=== PATIENT | male | born 1965 | race African-American/Black ===

== ENCOUNTER → 2016-11-09 | Outpatient (CLI) | payer BC ==
[2016-04-10 10:33] VITALS: BP 116/72
--- NOTE | 2016-11-09 15:01 | MRI ---
HISTORY: Cervicalgia, disc degeneration. Neck pain with numbness and tingling in the upper extremit ies. Study: Noncontrast MRI of the cervical spine Comparison: No priors Technique: Multiplanar multisequence MRI of the cervical spine was obtained utilizing standard depar tmental protocol. Findings: There is reversal of the normal cervical lordosis which likely indicates muscle spasm. No abnormal s ignal characteristics of the bone marrow can be identified. No evidence for fracture or significant bone or edema can be seen. The surrounding soft tissues are unremarkable. The central canal appea rs widely patent and normal signal characteristics of the spinal cord are noted. C2 -- C3: Unremarkable C3 -- C4: Unremarkable C4 -- C5: Left paracentral disc protrusion. There is minimal cord effacement and no evidence of cent ral spinal stenosis, lateral foraminal stenosis or nerve root impingement is seen. C5 -- C6: Bilateral subarticular disk protrusions, more pronounced on the left with foraminal stenos is and likely exiting nerve root impingement. No central spinal stenosis is seen. C6 -- C7: Broad disc ridging with mild cord effacement and bilateral foraminal stenosis. No signific ant central spinal stenosis is seen. C7 -- T1: Bilateral subarticular disk osteophyte complexes with bilateral foraminal stenosis and lik ashok exiting nerve root impingement. No evidence of central spinal stenosis is seen. IMPRESSION: Multilevel abnormalities as detailed above. Reported By:
== END ==
LOC: RAD 13:02
PROVIDERS: ATTEND Nurse Practitioner Family
DX: R20.2 Paresthesia of skin (principal); M54.2 Cervicalgia
CPT/HCPCS: 72141

== ENCOUNTER → 2017-01-12 | Outpatient (CLI) | payer BC ==
[2016-04-10 10:33] VITALS: BP 116/72
--- NOTE | 2017-01-15 11:28 | MRI ---
MRI SPINE LUMBAR WITHOUT CONTRAST CLINICAL HISTORY: 51-year-old male with chronic low back pain and left radicular symptoms. COMPARISON: None. Technique: Multiplanar, multisequence MRI images of the lumbar spine were obtained without the admin istration of contrast. FINDINGS: The most caudad, fully-formed intervertebral disc will be labeled L5-S1 for the purpose of this dictation. Straightening of the lumbar lordosis with mild levo scoliotic curvature as imaged. Al ignment is maintained. There is preservation of vertebral body and disc space height. Mild type 2 end plate changes L1-L5 with mild loss of disc signal L1-L5. Cord signal is normal. The conus medullaris is normal in signal characteristics and morphology and terminates at the L1-2 level. T12-L1: No central canal or neural foraminal stenosis. L1-L2: Symmetric disc bulge without central canal or neural foraminal stenosis. L2-L3: Symmetric disc bulge with moderate facet hypertrophy and thickened ligamentum flavum without c entral canal or neural foraminal stenosis. L3-L4: Large symmetric disc bulge with thickened ligamentum flavum and facet hypertrophy without cent ral canal or neural foraminal stenosis. Left far-lateral annular fissure with disc bulge engaging the ventral aspect of the transiting L4 nerve roots and exiting left L3 nerve root. L4-L5: Large symmetric disc bulge with facet hypertrophy and thickened ligamentum flavum. Central and far right lateral annular fissures with disc bulge contacting the ventral aspect of the transiting L 5 nerve roots. No central canal or neural foraminal stenosis. L5-S1: Symmetric disc bulge without central canal or neural foraminal stenosis. Paraspinous soft tissues are unremarkable. IMPRESSION: 1. Multilevel disc degeneration and spondyloarthropathy most severe at L3-L4. 2. See level by level descriptions above. Reported By:
== END | disposition home or self-care (01) ==
LOC: RAD 13:52
PROVIDERS: ATTEND Orthopaedic Surgery Orthopaedic Surgery of the Spine
DX: M54.16 Radiculopathy, lumbar region (principal); M47.896 Other spondylosis, lumbar region; M51.36 Other intervertebral disc degeneration, lumbar region
CPT/HCPCS: 72148

== ENCOUNTER 2017-04-10 15:12 | Emergency (ER) | payer BC ==
[2017-04-10 15:18] VITALS: BP 125/84; BMI 27.7
[2017-04-10] MEDS ORDERED: NS 1000 ML 1,000 ML IV ONE (15:21)
[2017-04-10] MEDS ORDERED: NS 1000 ML 1,000 ML ONE (15:23)
[2017-04-10] MEDS ORDERED: ZOFRAN INJ 4 MG VIAL IVP ONE (15:38)
[2017-04-10] MEDS ORDERED: TORADOL 30 MG VIAL IVP ONE (15:38)
[2017-04-10] MEDS ORDERED: TORADOL 30 MG VIAL ONE (15:39)
[2017-04-10] MEDS ORDERED: ZOFRAN INJ 4 MG VIAL ONE (15:39)
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
[2017-04-10 16:04] LABS: BASOPHILS # (AUTO) 0.1 X10^3/uL (0.0-0.1); BASOPHILS % (AUTO) 0.9 % (0.2-1.0); EOSINOPHILS # (AUTO) 0.1 x10^3/uL (0.0-0.2); EOSINOPHILS % (AUTO) 1.9 % (0.9-2.9); HEMOGLOBIN 13.8 g/dL (13.5-18.0); LYMPHOCYTES # (AUTO) 2.6 X10^3/uL (1.3-2.9); LYMPHOCYTES % (AUTO) 41.1 % (21.0-51.0); MEAN CORPUSCULAR HEMOGLOBIN 30.3 pg (27.0-34.0); MEAN CORPUSCULAR HGB CONC 34.6 g/dL (33.0-35.0); MEAN CORPUSCULAR VOLUME 87.6 fL (80.0-100.0); MEAN PLATELET VOLUME 7.9 fL (7.4-11.0); MONOCYTES % (AUTO) 15.5 % (0.0-13.0); NEUTROPHILS # (AUTO) 2.5 x10^3/uL (2.2-4.8); NEUTROPHILS % (AUTO) 40.6 % (42.0-75.0); PLATELET COUNT 273 X10^3/uL (150.0-450.0); RED BLOOD COUNT 4.57 X10^6/uL (4.7-6.0); WHITE BLOOD COUNT 6.3 X10^3/uL (3.6-10.0)
--- NOTE | 2017-04-10 16:14 | RAD ---
Examination: Portable AP chest History: Cough and fever Comparison 04/09/2016 Findings: Continued normal heart size with clear lungs and pleural spaces. Impression: No change; no acute disease. Reported By:
[2017-04-10 16:15] LABS: ALANINE AMINOTRANSFERASE 67 Units/L (12-78); ALBUMIN 3.3 g/dL (3.4-5.0); ALKALINE PHOSPHATASE 68 Units/L (46-116); ASPARTATE AMINO TRANSFERASE 40 Units/L (15-37); BLOOD UREA NITROGEN 10 mg/dL (7-18); CALCIUM 8.4 mg/dL (8.5-10.1); CARBON DIOXIDE 29.2 mmol/L (21-32); CHLORIDE 104 mmol/L (98-107); CREATININE 1.19 mg/dL (0.70-1.30); SODIUM 141 mmol/L (136-145); TOTAL PROTEIN 7.7 g/dL (6.4-8.2); eGFR BLACK RACES > 60 (>60); eGFR NON BLACK RACES > 60 (>60)
== END 2017-04-10 16:48 | disposition home or self-care (01) ==
LOC: ER 15:21
DX: J06.9 Acute upper respiratory infection, unspecified (principal)
CPT/HCPCS: 36415; 71045; 80053; 85025; 86140; 96365; 96374; 96375; 99283; A4222; J1885; J2405

== ENCOUNTER 2020-11-11 11:06 | Inpatient (IN) ==
[2020-11-11 11:22] VITALS: BMI 29.7
--- NOTE | 2020-11-11 11:59 | DR.DIZZY ---
HPI Time seen Time Seen by Provider: 11/11/20 11:47 PCP Primary Care Physician: Dr Franco Complaint Chief Complaint Doctor Comments: 55 y/o male, not feeling well over the past week. Started with episodes of fatigue, does work in the heat. Having worsening weakness, fatigue. Did have some nausea, vomiting this am, having increased swelling of hands/feet. Denies chest pain, CHF, kidney issues. Chief Complaint:: Pt was seen at PCP on sunday and treated for sinus infection, covid swab was neg, here today for o/p labs and became weak and lethargic. Pt reports vomiting this morning and has increased edema to the extremities. Pt also states he had a PENA yesterday. COVID-19 Coronavirus risk:travel/contact w/high risk person: No Has patient experienced Coronavirus symptoms: No Nurses Notes Reviewed Nurses Notes Review: Yes Source History Provided: Patient Mode of Arrival Mode of Arrival: Wheelchair Timing Onset of Chief Complaint: 11/04/20 Came on: Gradually Symptom Onset: Unknown Duration Duration: Intermittent Location of Weakness Weakness Location: Generalized Context Onset: At rest Does pt take pot. toxic medication?: No History of: None Stroke Symptoms: None Associated signs and symptoms Associated Signs and Symptoms: Weak and Headache PMH PMH Past Medical History: Yes Past Medical History: Hypertension Past Surgical History: No Surgical History: Other Family History History of Family Medical Conditions: Yes Family Medical History: Diabetes Mellitus, Cancer, ID, Sudden Cardiac and Hypertension Social History Alcohol Use: None Do you use any recreational Drugs:: No Lives Where: Home Travel Risk Coronavirus risk:travel/contact w/high risk person: No Has patient experienced Coronavirus symptoms: No Infectious screening In the last 2 months have you had wt loss of >10#?: NO Have you had fever, night sweats or hemotysis?: No Have you traveled outside the country in the last 6 months?: No Isolation: Standard ROS Review of Systems Constitutional: Malaise, Weakness and Fatigue Eyes: No Symptoms Reported ENTM: No Symptoms Reported Respiratoy: No Symptoms Reported Cardiovascular: No Symptoms Reported Gastrointestinal/Abdominal: No Symptoms Reported Genitourinary: No Symptoms Reported Neurological: Weakness Musculoskeletal: No Symptoms Reported Integumentary: No Symptoms Reported Hematologic/Lymphatic: No Symptoms Reported Endocrine: No Symptoms Reported Psychiatric: No Symptoms Reported All Other Systems: Reviewed and Negative PE Vital Signs Vitals: Temperature 97.9 F Pulse Rate [Left Radial] 69 Pulse Rate 81 Respiratory Rate 18 Blood Pressure [Left Arm] 145/90 Blood Pressure [Right Arm] 142/84 Blood Pressure 145/99 O2 Sat by Pulse Oximetry 95 General Limitations: No Limitations General Appearance: Alert and In No Apparent Distress Head Head Exam: Normal Inspection Eyes Eye exam: Normal Appearance ENT ENT Exam: Normal Exam Neck Neck Exam: Normal Inspection Chest Chest Inspection: Normal Inspection Respiratory Respiratory Exam: Normal Lung Sounds Bilat; negative Accessory Muscle Use and Respiratory Distress Cardiovascular Cardiovascular Exam: Regular Rate, Normal Rhythm and Normal Heart Sounds Abdominal Exam Abdominal Exam: Normal Inspection and Normal Bowel Sounds; negative Tenderness Extremeties Extremities Exam: Full ROM and Other (trace edema of bilateral hands/feet) Back Back Exam: Normal Inspection and Full ROM Neurologic Neurological Exam: Alert, Oriented X3 and CN II-XII Intact; negative Motor Sensory Deficit Psychiatric Psychiatric Exam: Normal Affect and Normal Mood Skin Skin Exam: Warm and Dry MDM Differential Diagnosis Differential Diagnosis: Electrolyte disorder Differential Diagnosis Comment: Heat exhaustion, Viral illness COURSE Treatment Treatment: 55 y/o male, not feeling well over the past several days. Does work in the heat. W/u initiated. Labs show the pt's Cr to be 5+ (last recorded one normal, 2017). Discussed with his attending, Dr. Franco, will admit for non traumatic kidney injury, probably related to heat exhaustion. Pt given IV fluids here. ROR Labs Reviewed Laboratory Results Reviewed?: Yes Result Diagrams: 11/11/20 11:40 11/11/20 11:40 Laboratory: WBC 11.1 X10^3/uL (3.6-10.0) H 11/11/20 11:40 RBC 4.94 X10^6/uL (4.7-6.0) 11/11/20 11:40 Hgb 15.2 g/dL (13.5-18.0) 11/11/20 11:40 Hct 44.4 % (42.0-54.0) 11/11/20 11:40 MCV 90.0 fL (80.0-100.0) 11/11/20 11:40 MCH 30.8 pg (27.0-34.0) 11/11/20 11:40 MCHC 34.2 g/dL (33.0-35.0) 11/11/20 11:40 RDW 13.1 % (11.6-16.5) 11/11/20 11:40 Plt Count 406 X10^3/uL (150.0-450.0) 11/11/20 11:40 MPV 7.9 fL (7.4-11.0) 11/11/20 11:40 Neut % (Auto) 75.0 % (42.0-75.0) 11/11/20 11:40 Lymph % (Auto) 16.4 % (21.0-51.0) L 11/11/20 11:40 [place] % (Auto) 7.4 % (0.0-13.0) 11/11/20 11:40 Eos % (Auto) 0.5 % (0.9-2.9) L 11/11/20 11:40 Baso % (Auto) 0.7 % (0.2-1.0) 11/11/20 11:40 Neut # (Auto) 8.3 x10^3/uL (2.2-4.8) H 11/11/20 11:40 Lymph # (Auto) 1.8 X10^3/uL (1.3-2.9) 11/11/20 11:40 [place] # (Auto) 0.8 x10^3/uL (0.3-0.8) 11/11/20 11:40 Eos # (Auto) 0.1 x10^3/uL (0.0-0.2) 11/11/20 11:40 Baso # (Auto) 0.1 X10^3/uL (0.0-0.1) 11/11/20 11:40 Absolute Nucleated RBC 0.1 /100WBC 11/11/20 11:40 Sodium 135 mmol/L (136-145) L 11/11/20 11:40 Corrected Sodium TNP 11/11/20 11:40 Potassium 4.9 mmol/L (3.5-5.1) 11/11/20 11:40 Chloride 102 mmol/L (98-107) 11/11/20 11:40 Carbon Dioxide 22.4 mmol/L (21-32) 11/11/20 11:40 BUN 69 mg/dL (7-18) H 11/11/20 11:40 Creatinine 5.22 mg/dL (0.70-1.30) H 11/11/20 11:40 Est GFR (MDRD) Af Amer 15 (>60) L 11/11/20 11:40 Est GFR (MDRD) Non-Af 12 (>60) L 11/11/20 11:40 Glucose 106 mg/dL (65-99) H 11/11/20 11:40 POC Glucose (mg/dL) 100 mg/dL (65-99) H 11/11/20 11:42 Calcium 8.0 mg/dL (8.5-10.1) L 11/11/20 11:40 Corrected Calcium 10.2 mg/dL (8.5-10.1) H 11/11/20 11:40 Total Bilirubin 0.20 mg/dL (0.2-1.0) 11/11/20 11:40 AST 38 Units/L (15-37) H 11/11/20 11:40 ALT 42 Units/L (12-78) 11/11/20 11:40 Alkaline Phosphatase 75 Units/L (46-116) 11/11/20 11:40 Creatine Kinase 430 Units/L (39-308) H 11/11/20 11:40 CK-MB (CK-2) 1.5 ng/mL (0-4.0) 11/11/20 11:40 CK/CKMB % Calc 0.4 % (<4) 11/11/20 11:40 Troponin I < 0.02 ng/mL (0-1.5) 11/11/20 11:40 Total Protein 6.6 g/dL (6.4-8.2) 11/11/20 11:40 Albumin 1.3 g/dL (3.4-5.0) L 11/11/20 11:40 Globulin 5.3 g/dL (2.5-4.5) H 11/11/20 11:40 Albumin/Globulin Ratio 0.2 Ratio (1.1-2.1) L 11/11/20 11:40 Lipase 60 Units/L (73-393) L 11/11/20 11:40 Specimen Type Clean catch urine 11/11/20 12:38 Urine Color Yellow (YELLOW) 11/11/20 12:38 Urine Appearance Slightly hazy (CLEAR) 11/11/20 12:38 Urine pH 5.0 (5.0 - 8.0) 11/11/20 12:38 Ur Specific [place] 1.020 (1.000-1.030) 11/11/20 12:38 Urine Protein 4+ (NEGATIVE) 11/11/20 12:38 Urine Glucose (UA) Negative (NEGATIVE) 11/11/20 12:38 Urine Ketones Negative (NEGATIVE) 11/11/20 12:38 Urine Occult Blood 4+ (NEGATIVE) 11/11/20 12:38 Urine Nitrite Negative (NEGATIVE) 11/11/20 12:38 Urine Bilirubin Negative (NEGATIVE) 11/11/20 12:38 Urine Urobilinogen Normal (NORMAL) 11/11/20 12:38 Ur Leukocyte Esterase Negative (NEGATIVE) 11/11/20 12:38 Urine RBC 5-10 /HPF (0-3) A 11/11/20 12:38 Urine WBC 0-2 /HPF (0-5) 11/11/20 12:38 Ur Squamous Epith Cells Few /HPF (NEGATIVE) 11/11/20 12:38 Amorphous Sediment 3+ /HPF (NEGATIVE) 11/11/20 12:38 Urine Bacteria Trace /HPF (NEGATIVE) 11/11/20 12:38 Granular Casts Moderate /LPF (NEGATIVE) 11/11/20 12:38 Ur Culture Indicated? No/not indicated 11/11/20 12:38 SARS CoV-2 RNA Rapid CHELSIE Negative (NEGATIVE) 11/11/20 12:38 Other Results Comments: + elevated BUN/Cr, c/w non traumatic kidney injury EKG Rate: 65 [place]: Normal Rhythm: NSR Block: None Hypertrophy: LAE ST: Normal Opioid Opioid Risk Tool Age (Bk box if 16-45): No Total: 0 Total Score Risk Category: Low Risk Copyright: [facility] predicting aberrant behaviors Diagnosis Discharge Problem: Acute nontraumatic kidney injury
[2020-11-11 12:18] LABS: BASOPHILS # (AUTO) 0.1 X10^3/uL (0.0-0.1); BASOPHILS % (AUTO) 0.7 % (0.2-1.0); EOSINOPHILS # (AUTO) 0.1 x10^3/uL (0.0-0.2); EOSINOPHILS % (AUTO) 0.5 % (0.9-2.9); HEMATOCRIT 44.4 % (42.0-54.0); HEMOGLOBIN 15.2 g/dL (13.5-18.0); LYMPHOCYTES # (AUTO) 1.8 X10^3/uL (1.3-2.9); LYMPHOCYTES % (AUTO) 16.4 % (21.0-51.0); MEAN CORPUSCULAR HEMOGLOBIN 30.8 pg (27.0-34.0); MEAN CORPUSCULAR HGB CONC 34.2 g/dL (33.0-35.0); MEAN PLATELET VOLUME 7.9 fL (7.4-11.0); MONOCYTES # (AUTO) 0.8 x10^3/uL (0.3-0.8); MONOCYTES % (AUTO) 7.4 % (0.0-13.0); NEUTROPHILS # (AUTO) 8.3 x10^3/uL (2.2-4.8); PLATELET COUNT 406 X10^3/uL (150.0-450.0); RED BLOOD COUNT 4.94 X10^6/uL (4.7-6.0); RED CELL DISTRIBUTION WIDTH 13.1 % (11.6-16.5); WHITE BLOOD COUNT 11.1 X10^3/uL (3.6-10.0)
[2020-11-11 12:37] LABS: ALANINE AMINOTRANSFERASE 42 Units/L (12-78); ALBUMIN 1.3 g/dL (3.4-5.0); ALKALINE PHOSPHATASE 75 Units/L (46-116); ASPARTATE AMINO TRANSFERASE 38 Units/L (15-37); BLOOD UREA NITROGEN 69 mg/dL (7-18); CARBON DIOXIDE 22.4 mmol/L (21-32); CHLORIDE 102 mmol/L (98-107); CKMB % 0.4 % (<4); COR CA(FOR HYPOALB) 10.2 mg/dL (8.5-10.1); CREATINE KINASE 430 Units/L (39-308); CREATINE KINASE MB 1.5 ng/mL (0-4.0); CREATININE 5.22 mg/dL (0.70-1.30); LIPASE 60 Units/L (73-393); SODIUM 135 mmol/L (136-145); TOTAL PROTEIN 6.6 g/dL (6.4-8.2); TROPONIN I < 0.02 ng/mL (0-1.5); eGFR NON BLACK RACES 12 (>60)
[2020-11-11 12:48] LABS: BILIRUBIN,URINE NEGATIVE (NEGATIVE); BLOOD/HEMOGLOBIN,URINE 4+ (NEGATIVE); GLUCOSE, URINE NEGATIVE (NEGATIVE); KETONES,URINE NEGATIVE (NEGATIVE); LEUKOCYTE ESTERASE ,URINE NEGATIVE (NEGATIVE); NITRITES,URINE NEGATIVE (NEGATIVE); PROTEIN,URINE 4+ (NEGATIVE); UROBILINOGEN,URINE NORMAL (NORMAL)
[2020-11-11 13:11] LABS: APPEARANCE,URINE SLIGHTLY HAZY (CLEAR); COLOR,URINE YELLOW (YELLOW)
[2020-11-11 13:12] LABS: AMORPHOUS SEDIMENT,UR 3+ /HPF (NEGATIVE); BACTERIA,URINE TRACE /HPF (NEGATIVE); GRANULAR CASTS,URINE MODERATE /LPF (NEGATIVE); SQUAMOUS EPITHELIAL CELL,UR FEW /HPF (NEGATIVE)
[2020-11-11] MEDS ORDERED: NS 1000 ML 1,000 ML IV ONE (13:39)
[2020-11-11] MEDS ORDERED: NS 1000 ML 1,000 ML ONE (13:55)
--- NOTE | 2020-11-11 14:06 | RAD ---
HISTORYEDEMASTUDYCHEST x-ray, 1 VIEWCOMPARISONNoneFINDINGSProbable CHF without pulmonary edema. There may be small right pleural effusion. Likely mild bibasilar atelectasis. No pneumothorax is seen.IMPRESSIONProbable CHF and small right pleural effusion.Electronically signed by: Kalia Hawley (Nov 11, 2020 14:03:44)
[2020-11-11] MEDS ORDERED: NS 1000 ML 1,000 ML IV SCH (14:49)
[2020-11-11] MEDS: PEPCID TAB 20 MG PO SCH (15:09)
--- NOTE | 2020-11-11 19:19 | DR.H&P ---
H&P - History & Physical for Day of: H&P Date: 11/11/20 - Chief Complaint Chief Complaint: weakness, dizziness, facial swelling, swelling hands and feet - History of Present Illness History of Present Illness: PT IS 55 BM ER ADMISSION AFTER FAILING OUTPT TREATMENT FOR ACUTE SINUSITIS. PT WAS HAVING OUPT LABS AND CXR WHEN HE BECAME VERY WEAK. PT WAS SENT TO ER AND LABS REVEALED ACUTE RENAL FAILURE. PT HAD PMH OF HTN, OA AND CHRONIC SINUSTIS. BASELINE CREAT 1.00. PT REPORTS HE WAS FEELING BAD OVER PAST WEEKEND, RELATED TO SINUS INFECTION. PT HAD POSTERIOR PHARYNX, TONSILLAR ERYTHEMA AND EDEMA, TESTED NEGATIVE FOR COVID. PT RECIEVED IM RO CEPHIN. PT ADMITTED FOR TREATMENT AND EVALUATION OF ACUTE ILLNESS. - Past Medical History Past Medical History: Hypertension Additional Medical History: Glaucoma, Vision deficit, Chronic sinus allergies, Heart Murmur, Gastrointestinal Ulcer, Pancreatitis, Rheumatoid Arthritis, Degenergative Disc Disease, Scoliosis - Past Surgical History Surgical History: Other Additional Surgical History: Inguinal Hernia Repair - Family History Family Medical History: Diabetes Mellitus, [place], Hypertension - Social History Does patient currently use any type of tobacco product: No Have you used tobacco products in the last 12 months: No Type of Tobacco Use: None Does any household member use tobacco: No Alcohol Use: None Drug Use: None - Medications Home Medications: ibuprofen [From Motrin] Allergy (Verified 11/11/20 11:08) tramadol Allergy (Verified 11/11/20 11:08) CONTINUE taking the following medications azelastine 1 spray INTRANASAL BID 11/11/20 [History] metoprolol tartrate 50 mg PO DAILY 11/11/20 [History] - Review of Systems Constitutional: Weakness, Malaise Eyes: No Symptoms Reported ENT: No Symptoms Reported Respiratory: Shortness of Breath Cardiovascular: No Symptoms Reported, Edema Gastrointestinal: Nausea Genitourinary: Retention Musculoskeletal: Back Pain, Leg Pain, Neck Pain Skin: No Symptoms Reported Neurological: Weakness - Physical Exam Vital Signs: Temperature 98.1 F Pulse Rate [Left Radial] 65 Pulse Rate 81 Respiratory Rate 20 Blood Pressure [Left Arm] 162/80 Blood Pressure [Right Arm] 142/84 Blood Pressure 145/99 O2 Sat by Pulse Oximetry 96 Oriented: Normal Eyes: Normal, Other (MILD PERIORBITAL EDEMA) Ear: Normal Throat: Tonsillar Hypertrophy, Exudate Respiratory: RLL Diminished, LLL Diminished Cardiovascular: Normal, Edema : Normal Auscultation: Bowel Sounds: Normal Palpation: Normal Tenderness: Normal Skin: Normal Musculoskeletal: Normal Psychiatric: Anxiety Affect: Anxious Speech Pattern: Clear, Appropriate - Assessment/Plan (1) Acute renal failure Status: Acute Plan: ADMIT, GENTLE IV HYDRATION. STRICT I&OS, BP CONTROL. CARDIAC MONITORING, COVID - ON ADMISSION. ECHO, RENAL US, PSA ON ADMISSION. VERIFY HOME MEDICATION, IV ROCPHIN, STREP SCREEN. PPI THERAPY, ANTIHISTAMINES (2) Rhabdomyolysis Qualifiers: Encounter type: initial encounter Status: Acute (3) Hypertension Qualifiers: Hypertension type: essential hypertension Qualified Code(s): I10 - Essential (primary) hypertension Status: Chronic (4) Upper respiratory infection Qualifiers: URI type: unspecified viral URI Qualified Code(s): J06.9 - Acute upper respiratory infection, unspecified Status: Acute - Allergies Allergies/Adverse Reactions: Allergies Allergy/AdvReac Type Severity Reaction Status Date / Time ibuprofen [From Motrin] Allergy Verified 11/11/20 11:08 tramadol Allergy Verified 11/11/20 11:08
[2020-11-11] MEDS: ZyrTEC TAB 10 MG PO SCH (21:31)
[2020-11-11] MEDS: ROCEPHIN VIAL 1 GRAM 1 G in NS 100 ML IV + SPIKE MINIBAG* 100 ML IV SCH (21:31)
[2020-11-11] MEDS: NS 100 ML IV 100 ML IV SCH (21:32)
[2020-11-11] MEDS: LIPITOR TAB 20 MG PO SCH (21:32)
[2020-11-11 21:57] LABS: ABG ALLEN TEST POSS; ABG BASE EXCESS -1.1 mmol/L (-2.0-2.0); ABG HCO3 22.4 mmol/L (22-26)
[2020-11-12] MEDS: NS 100 ML IV 100 ML IV SCH (00:56)
[2020-11-12] MEDS: NS 1000 ML 1,000 ML IV SCH ×3 (05:12→23:49)
[2020-11-12 06:19] LABS: BASOPHILS # (AUTO) 0.1 X10^3/uL (0.0-0.1); BASOPHILS % (AUTO) 0.7 % (0.2-1.0); EOSINOPHILS # (AUTO) 0.1 x10^3/uL (0.0-0.2); EOSINOPHILS % (AUTO) 1.2 % (0.9-2.9); HEMATOCRIT 37.7 % (42.0-54.0); HEMOGLOBIN 13.1 g/dL (13.5-18.0); LYMPHOCYTES # (AUTO) 1.9 X10^3/uL (1.3-2.9); LYMPHOCYTES % (AUTO) 19.3 % (21.0-51.0); MEAN CORPUSCULAR HEMOGLOBIN 31.1 pg (27.0-34.0); MEAN CORPUSCULAR HGB CONC 34.8 g/dL (33.0-35.0); MEAN CORPUSCULAR VOLUME 89.5 fL (80.0-100.0); MEAN PLATELET VOLUME 7.9 fL (7.4-11.0); MONOCYTES # (AUTO) 1.1 x10^3/uL (0.3-0.8); MONOCYTES % (AUTO) 11.6 % (0.0-13.0); NEUTROPHILS # (AUTO) 6.6 x10^3/uL (2.2-4.8); NEUTROPHILS % (AUTO) 67.2 % (42.0-75.0); PLATELET COUNT 337 X10^3/uL (150.0-450.0); RED BLOOD COUNT 4.21 X10^6/uL (4.7-6.0); RED CELL DISTRIBUTION WIDTH 13.3 % (11.6-16.5); WHITE BLOOD COUNT 9.9 X10^3/uL (3.6-10.0)
[2020-11-12 06:44] LABS: ALANINE AMINOTRANSFERASE 32 Units/L (12-78); ALKALINE PHOSPHATASE 58 Units/L (46-116); ASPARTATE AMINO TRANSFERASE 33 Units/L (15-37); BLOOD UREA NITROGEN 74 mg/dL (7-18); CALCIUM 7.3 mg/dL (8.5-10.1); CARBON DIOXIDE 25.5 mmol/L (21-32); CHLORIDE 104 mmol/L (98-107); CKMB % 0.3 % (<4); COR CA(FOR HYPOALB) 9.7 mg/dL (8.5-10.1); CREATINE KINASE 468 Units/L (39-308); CREATINE KINASE MB 1.2 ng/mL (0-4.0); CREATININE 5.11 mg/dL (0.70-1.30); FREE T4 (FREE THYROXINE) 0.64 ng/dL (0.76-1.46); SODIUM 135 mmol/L (136-145); TOTAL PROTEIN 5.3 g/dL (6.4-8.2); TROPONIN I < 0.02 ng/mL (0-1.5); TSH (3RD GENERATION) 2.645 uIU/mL (0.358-3.74); eGFR NON BLACK RACES 13 (>60)
--- NOTE | 2020-11-12 07:20 | CT ---
HISTORYFacial swellingSTUDYMaxillofacial CT without contrastTechnique: Axial noncontrast images with coronal and sagittal reformats. Dose reduction procedures were used with mA/kv adjusted for body size.COMPARISONNoneFINDINGSNo significant facial swelling is identified. Mucosal thickening and air-fluid levels are present in the maxillary sinuses bilaterally consistent with acute maxillary sinusitis. There is an air-fluid level in the left sphenoid sinus consistent with acute left sphenoid sinusitis. Mucosal inflammatory changes are present in the right sphenoid sinus. The frontal sinuses are clear. Mucosal inflammatory changes are present in the ethmoid sinuses bilaterally. Nasal septum is midline however there is a 2 mm rightward directed septal spur present. The ostiomeatal complexes are not patent.IMPRESSIONFindings consistent with acute bilateral maxillary and left sphenoid sinusitisMucosal inflammatory changes in the right sphenoid sinus and bilateral ethmoid sinusesNo obvious facial swelling identifiedElectronically signed by: ELLIOT WHITAKER (Nov 12, 2020 07:18:17)
--- NOTE | 2020-11-12 08:06 | CT ---
HISTORYFACIAL SWELLINGSTUDYCT SOFT TISSUE NECK without IV contrastCOMPARISONNoneTECHNIQUEMultiple axial images of the soft tissue neck were obtained from skull base to the aortic arch [without] the administration of IV contrast. Sagittal and coronal reformats were performed and reviewed. Dose reduction techniques including Automated Exposure Control (AEC) and adjustment of mA and kV were utilized.FINDINGSMucosal thickening and air-fluid levels are seen in the maxillary ethmoid, and sphenoid sinuses. Frontal sinuses appear clear. Findings suggest acute sinusitis. Orbits appear normal. Mastoid air cells and middle ears appear clear. No maxillary or mandible lesion is seen. No tonsillar enlargement is seen.Likely mild soft tissue edema is seen in the chin and lower lip. No focal fluid collection is seen. Small reactive lymph nodes are seen in the submental, submandibular, and jugular digastric chains. Submandibular and parotid glands appear normal. No retropharyngeal edema is seen. No abnormalities are seen in the larynx. Thyroid gland appears normal.IMPRESSIONAcute sinusitis is suspected.Edema in the chin and lower lip region may be bland edema or cellulitis. No evidence of abscess is seenElectronically signed by: Kalia Hawley (Nov 12, 2020 08:04:19)
[2020-11-12] MEDS ORDERED: ZESTRIL TAB 40 MG PO SCH (09:00)
--- NOTE | 2020-11-12 09:06 | US ---
HISTORYAcute renal failureSTUDYBilateral renal sonogramTechnique: Multiple grayscale sonographic images were obtained.COMPARISONNoneFINDINGSRight kidney measures 11.4 x 6.3 x 5.8 cm. Cortical thickness and cortical echogenicity were normal. No solid masses, hydronephrosis, stones, or perinephric fluid collections were identified. Left kidney measured 10.8 cm x 6.6 cm x 6.9 cm. Cortical thickness and cortical echogenicity were normal. No solid masses, hydronephrosis, stones, or perinephric fluid collections were identified. No definite bladder abnormality was identified.IMPRESSIONNo significant abnormality identifiedElectronically signed by: ELLIOT WHITAKER (Nov 12, 2020 09:05:22)
[2020-11-12] MEDS: NORVASC TAB 10 MG PO SCH (09:10)
[2020-11-12] MEDS: PROTONIX TAB 40 MG PO SCH (09:12)
[2020-11-12] MEDS: PEPCID TAB 20 MG PO SCH (09:12)
[2020-11-12] MEDS: ROCEPHIN VIAL 1 GRAM 1 G in NS 100 ML IV + SPIKE MINIBAG* 100 ML IV SCH (09:13)
[2020-11-12] MEDS: ZyrTEC TAB 10 MG PO SCH (09:13)
[2020-11-12] MEDS ORDERED: ASPIRIN ONE (09:27)
[2020-11-12] MEDS: ASPIRIN PO SCH (09:29)
[2020-11-12] MEDS ORDERED: ROBITUSSIN DM PO PRN (14:02)
[2020-11-12] MEDS: FLOMAX PO SCH ×2 (17:27→21:13)
[2020-11-12 17:47] LABS: ALANINE AMINOTRANSFERASE 44 Units/L (12-78); ALBUMIN 1.2 g/dL (3.4-5.0); ALKALINE PHOSPHATASE 70 Units/L (46-116); ASPARTATE AMINO TRANSFERASE 43 Units/L (15-37); BLOOD UREA NITROGEN 74 mg/dL (7-18); CALCIUM 7.6 mg/dL (8.5-10.1); CARBON DIOXIDE 23.9 mmol/L (21-32); CHLORIDE 102 mmol/L (98-107); COR CA(FOR HYPOALB) 9.8 mg/dL (8.5-10.1); CREATININE 5.04 mg/dL (0.70-1.30); SODIUM 134 mmol/L (136-145); TOTAL PROTEIN 6.3 g/dL (6.4-8.2); eGFR NON BLACK RACES 13 (>60)
[2020-11-12] MEDS: TYLENOL 500 MG TAB EXTRA STRENGTH PO PRN (19:35)
[2020-11-12] MEDS: LIPITOR TAB 20 MG PO SCH (21:13)
[2020-11-13] MEDS: NS 1000 ML 1,000 ML IV SCH ×5 (04:13→22:36)
[2020-11-13 05:57] LABS: BASOPHILS # (AUTO) 0.1 X10^3/uL (0.0-0.1); BASOPHILS % (AUTO) 1.1 % (0.2-1.0); EOSINOPHILS # (AUTO) 0.2 x10^3/uL (0.0-0.2); EOSINOPHILS % (AUTO) 2.5 % (0.9-2.9); HEMATOCRIT 37.1 % (42.0-54.0); HEMOGLOBIN 12.9 g/dL (13.5-18.0); LYMPHOCYTES # (AUTO) 1.9 X10^3/uL (1.3-2.9); LYMPHOCYTES % (AUTO) 19.6 % (21.0-51.0); MEAN CORPUSCULAR HGB CONC 34.8 g/dL (33.0-35.0); MEAN PLATELET VOLUME 8.1 fL (7.4-11.0); MONOCYTES # (AUTO) 0.8 x10^3/uL (0.3-0.8); MONOCYTES % (AUTO) 8.3 % (0.0-13.0); NEUTROPHILS # (AUTO) 6.8 x10^3/uL (2.2-4.8); NEUTROPHILS % (AUTO) 68.5 % (42.0-75.0); PLATELET COUNT 342 X10^3/uL (150.0-450.0); RED BLOOD COUNT 4.17 X10^6/uL (4.7-6.0); RED CELL DISTRIBUTION WIDTH 12.9 % (11.6-16.5); WHITE BLOOD COUNT 9.9 X10^3/uL (3.6-10.0)
[2020-11-13 06:08] LABS: ALANINE AMINOTRANSFERASE 35 Units/L (12-78); ALBUMIN 1.1 g/dL (3.4-5.0); ALKALINE PHOSPHATASE 58 Units/L (46-116); ASPARTATE AMINO TRANSFERASE 33 Units/L (15-37); BLOOD UREA NITROGEN 76 mg/dL (7-18); CALCIUM 7.3 mg/dL (8.5-10.1); CARBON DIOXIDE 22.2 mmol/L (21-32); CHLORIDE 104 mmol/L (98-107); COR CA(FOR HYPOALB) 9.6 mg/dL (8.5-10.1); SODIUM 135 mmol/L (136-145); TOTAL PROTEIN 5.4 g/dL (6.4-8.2); eGFR NON BLACK RACES 13 (>60)
[2020-11-13] MEDS: NORVASC TAB 10 MG PO SCH (10:08)
[2020-11-13] MEDS: ASPIRIN PO SCH (10:08)
[2020-11-13] MEDS: PEPCID TAB 20 MG PO SCH (10:12)
[2020-11-13] MEDS: ROCEPHIN VIAL 1 GRAM 1 G in NS 100 ML IV + SPIKE MINIBAG* 100 ML IV SCH (10:13)
[2020-11-13] MEDS: ZESTRIL TAB 40 MG PO SCH ×2 (10:13→15:27)
[2020-11-13] MEDS: PROTONIX TAB 40 MG PO SCH (10:13)
[2020-11-13] MEDS: ZyrTEC TAB 10 MG PO SCH (10:14)
[2020-11-13 11:35] LABS: CKMB % 0.5 % (<4); CREATINE KINASE 332 Units/L (39-308); CREATINE KINASE MB 1.6 ng/mL (0-4.0); TROPONIN I < 0.02 ng/mL (0-1.5)
[2020-11-13] MEDS: TYLENOL 500 MG TAB EXTRA STRENGTH PO PRN (11:45)
--- NOTE | 2020-11-13 12:26 | RAD ---
PROCEDURE: Chest X-ray 1 View .HISTORY: Hypertension and abnormal chest x-ray with history of congestive heart failure and small right pleural effusion.TECHNIQUE: AP view .COMPARISON: 11/11/2020.TECHNICAL QUALITY: Satisfactory .FINDINGS:Normal size heart .Mediastinum and hilar regions show no masses or lymphadenopathy .Normal central vascularity .No pulmonary consolidation, masses, pleural fluid, or pneumothorax .No acute bony abnormality .IMPRESSION:No active cardiopulmonary disease .Electronically signed by: Cullen Gautam (Nov 13, 2020 12:24:11)
--- NOTE | 2020-11-13 12:30 | CT ---
PROCEDURE: CT Abdomen and Pelvis without Contrast .HISTORY: Abd pain .TECHNIQUE: Axial images were performed through the abdomen and pelvis without the administration of IV contrast with multiplanar reformations . Oral contrast was not administered . Dose reduction techniques including Automated Exposure Control (AEC) and adjustment of mA and kV were utilized .COMPARISON: 04/07/2016.TECHNICAL QUALITY: Satisfactory .FINDINGS:Small bilateral pleural effusions with compressive atelectasis lung bases.Liver, spleen, and adrenals show no abnormality. [id number] peripancreatic stranding diffusely consistent with acute pancreatitis with no pseudocyst.Kidneys show no stones or obstruction.Normal biliary tract.No abdominal ascites or pneumoperitoneum.Trace atherosclerosis aorta.No lymphadenopathy.Peritoneal on all stranding may represent secondary due duodenitis from patient's primary pancreatitis. No bowel obstruction. Mild colonic diverticulosis. Normal appendix.Pelvis shows no masses or free fluid and normal urinary bladder.No acute bony abnormality.IMPRESSION:1. Acute pancreatitis.2. Possible secondary duodenitis.3. No other significant abnormality identified.Electronically signed by: Cullen Gautam (Nov 13, 2020 12:28:31)
[2020-11-13] MEDS: FLOMAX PO SCH ×2 (21:08→21:46)
[2020-11-13] MEDS: LIPITOR TAB 20 MG PO SCH ×2 (21:09→21:47)
[2020-11-14 06:41] LABS: BASOPHILS # (AUTO) 0.1 X10^3/uL (0.0-0.1); BASOPHILS % (AUTO) 0.8 % (0.2-1.0); EOSINOPHILS # (AUTO) 0.2 x10^3/uL (0.0-0.2); EOSINOPHILS % (AUTO) 2.1 % (0.9-2.9); HEMATOCRIT 37.9 % (42.0-54.0); LYMPHOCYTES # (AUTO) 1.8 X10^3/uL (1.3-2.9); LYMPHOCYTES % (AUTO) 17.3 % (21.0-51.0); MEAN CORPUSCULAR HEMOGLOBIN 30.8 pg (27.0-34.0); MEAN CORPUSCULAR HGB CONC 34.2 g/dL (33.0-35.0); MEAN CORPUSCULAR VOLUME 90.1 fL (80.0-100.0); MONOCYTES # (AUTO) 0.9 x10^3/uL (0.3-0.8); MONOCYTES % (AUTO) 8.3 % (0.0-13.0); NEUTROPHILS # (AUTO) 7.4 x10^3/uL (2.2-4.8); NEUTROPHILS % (AUTO) 71.5 % (42.0-75.0); PLATELET COUNT 391 X10^3/uL (150.0-450.0); RED BLOOD COUNT 4.21 X10^6/uL (4.7-6.0); RED CELL DISTRIBUTION WIDTH 13.1 % (11.6-16.5); WHITE BLOOD COUNT 10.4 X10^3/uL (3.6-10.0)
[2020-11-14 06:55] LABS: ALANINE AMINOTRANSFERASE 35 Units/L (12-78); ALKALINE PHOSPHATASE 60 Units/L (46-116); ASPARTATE AMINO TRANSFERASE 29 Units/L (15-37); BLOOD UREA NITROGEN 74 mg/dL (7-18); CALCIUM 7.2 mg/dL (8.5-10.1); CARBON DIOXIDE 22.6 mmol/L (21-32); CHLORIDE 107 mmol/L (98-107); COR CA(FOR HYPOALB) 9.6 mg/dL (8.5-10.1); CREATININE 4.67 mg/dL (0.70-1.30); SODIUM 138 mmol/L (136-145); TOTAL PROTEIN 5.4 g/dL (6.4-8.2); eGFR NON BLACK RACES 14 (>60)
[2020-11-14 07:50] LABS: AMYLASE 52 Units/L (25-115); LIPASE 56 Units/L (73-393)
[2020-11-14] MEDS: NS 1000 ML 1,000 ML IV SCH ×3 (08:07→14:08)
[2020-11-14] MEDS: ASPIRIN PO SCH (09:35)
[2020-11-14] MEDS: PEPCID TAB 20 MG PO SCH (09:36)
[2020-11-14] MEDS: NORVASC TAB 10 MG PO SCH (09:36)
[2020-11-14] MEDS: ZESTRIL TAB 40 MG PO SCH (09:37)
[2020-11-14] MEDS: PROTONIX TAB 40 MG PO SCH (09:37)
[2020-11-14] MEDS: ROCEPHIN VIAL 1 GRAM 1 G in NS 100 ML IV + SPIKE MINIBAG* 100 ML IV SCH (09:37)
[2020-11-14] MEDS: ZyrTEC TAB 10 MG PO SCH (09:38)
[2020-11-15] MEDS: NS 1000 ML 1,000 ML IV SCH ×2 (01:14→09:25)
[2020-11-15] MEDS: NORVASC TAB 10 MG PO SCH (09:13)
[2020-11-15] MEDS: ASPIRIN PO SCH (09:13)
[2020-11-15] MEDS: ROCEPHIN VIAL 1 GRAM 1 G in NS 100 ML IV + SPIKE MINIBAG* 100 ML IV SCH (09:14)
[2020-11-15] MEDS: PEPCID TAB 20 MG PO SCH (09:14)
[2020-11-15] MEDS: ZESTRIL TAB 40 MG PO SCH (09:14)
[2020-11-15] MEDS: PROTONIX TAB 40 MG PO SCH (09:14)
[2020-11-15] MEDS: ZyrTEC TAB 10 MG PO SCH (09:15)
[2020-11-15 10:57] LABS: BASOPHILS % (AUTO) 0.1 % (0.2-1.0); EOSINOPHILS # (AUTO) 0.3 x10^3/uL (0.0-0.2); EOSINOPHILS % (AUTO) 2.3 % (0.9-2.9); HEMATOCRIT 39.8 % (42.0-54.0); HEMOGLOBIN 13.6 g/dL (13.5-18.0); LYMPHOCYTES # (AUTO) 1.8 X10^3/uL (1.3-2.9); LYMPHOCYTES % (AUTO) 15.6 % (21.0-51.0); MEAN CORPUSCULAR HEMOGLOBIN 31.2 pg (27.0-34.0); MEAN CORPUSCULAR HGB CONC 34.2 g/dL (33.0-35.0); MEAN CORPUSCULAR VOLUME 91.1 fL (80.0-100.0); MEAN PLATELET VOLUME 7.4 fL (7.4-11.0); MONOCYTES # (AUTO) 0.8 x10^3/uL (0.3-0.8); MONOCYTES % (AUTO) 6.5 % (0.0-13.0); NEUTROPHILS # (AUTO) 8.8 x10^3/uL (2.2-4.8); NEUTROPHILS % (AUTO) 75.5 % (42.0-75.0); PLATELET COUNT 419 X10^3/uL (150.0-450.0); RED BLOOD COUNT 4.37 X10^6/uL (4.7-6.0); RED CELL DISTRIBUTION WIDTH 13.3 % (11.6-16.5); WHITE BLOOD COUNT 11.6 X10^3/uL (3.6-10.0)
[2020-11-15 11:10] LABS: ALBUMIN 1.1 g/dL (3.4-5.0); CALCIUM 7.4 mg/dL (8.5-10.1); CARBON DIOXIDE 21.5 mmol/L (21-32); COR CA(FOR HYPOALB) 9.7 mg/dL (8.5-10.1); CREATININE 4.48 mg/dL (0.70-1.30); TOTAL PROTEIN 5.7 g/dL (6.4-8.2)
--- NOTE | 2020-11-15 11:33 | RAD ---
HISTORYSOBSTUDYCHEST, 1 [id number] lungs are clear. No pneumothorax or significant effusion. The small effusions seen on the abdomen CT 11/13/2020 are not visible on radiography today.Heart size is normal.Bones are unremarkable.EKG leads are noted.IMPRESSION1. No significant abnormalityElectronically signed by: Sanket rBiggs (Nov 15, 2020 11:30:38)
[2020-11-15] MEDS ORDERED: LASIX IVP SCH (14:00)
[2020-11-16] MEDS: TYLENOL 500 MG TAB EXTRA STRENGTH PO PRN (04:45)
[2020-11-16] MEDS: NS 1000 ML 1,000 ML IV SCH ×2 (07:04→07:59)
[2020-11-16 07:33] LABS: BASOPHILS # (AUTO) 0.1 X10^3/uL (0.0-0.1); BASOPHILS % (AUTO) 1.1 % (0.2-1.0); EOSINOPHILS # (AUTO) 0.3 x10^3/uL (0.0-0.2); EOSINOPHILS % (AUTO) 2.2 % (0.9-2.9); HEMATOCRIT 40.8 % (42.0-54.0); HEMOGLOBIN 13.6 g/dL (13.5-18.0); LYMPHOCYTES # (AUTO) 1.8 X10^3/uL (1.3-2.9); LYMPHOCYTES % (AUTO) 14.2 % (21.0-51.0); MEAN CORPUSCULAR HEMOGLOBIN 30.7 pg (27.0-34.0); MEAN CORPUSCULAR HGB CONC 33.4 g/dL (33.0-35.0); MEAN CORPUSCULAR VOLUME 91.9 fL (80.0-100.0); MEAN PLATELET VOLUME 7.5 fL (7.4-11.0); MONOCYTES # (AUTO) 0.7 x10^3/uL (0.3-0.8); NEUTROPHILS # (AUTO) 9.6 x10^3/uL (2.2-4.8); NEUTROPHILS % (AUTO) 76.5 % (42.0-75.0); PLATELET COUNT 446 X10^3/uL (150.0-450.0); RED BLOOD COUNT 4.44 X10^6/uL (4.7-6.0); RED CELL DISTRIBUTION WIDTH 13.5 % (11.6-16.5); WHITE BLOOD COUNT 12.5 X10^3/uL (3.6-10.0)
[2020-11-16 07:34] LABS: ALANINE AMINOTRANSFERASE 47 Units/L (12-78); ALBUMIN 1.1 g/dL (3.4-5.0); ALKALINE PHOSPHATASE 62 Units/L (46-116); ASPARTATE AMINO TRANSFERASE 39 Units/L (15-37); BLOOD UREA NITROGEN 71 mg/dL (7-18); CALCIUM 7.7 mg/dL (8.5-10.1); CARBON DIOXIDE 19.8 mmol/L (21-32); CHLORIDE 111 mmol/L (98-107); CREATININE 4.36 mg/dL (0.70-1.30); SODIUM 140 mmol/L (136-145); TOTAL PROTEIN 5.8 g/dL (6.4-8.2); eGFR NON BLACK RACES 15 (>60)
[2020-11-16] MEDS: PROTONIX TAB 40 MG PO SCH (07:59)
[2020-11-16] MEDS: NORVASC TAB 10 MG PO SCH (07:59)
[2020-11-16] MEDS: ASPIRIN PO SCH (07:59)
[2020-11-16] MEDS: PEPCID TAB 20 MG PO SCH (07:59)
[2020-11-16] MEDS: ZyrTEC TAB 10 MG PO SCH (08:00)
[2020-11-16] MEDS: ROCEPHIN VIAL 1 GRAM 1 G in NS 100 ML IV + SPIKE MINIBAG* 100 ML IV SCH (08:00)
[2020-11-16] MEDS: ZESTRIL TAB 40 MG PO SCH (08:00)
[2020-11-16] MEDS ORDERED: LASIX IVP ONE (09:31)
[2020-11-16] MEDS ORDERED: NS 1/2 1000 ML IV 1,000 ML IV ONE ×2 (09:52→22:01)
[2020-11-16] MEDS: NS 1/2 1000 ML IV 1,000 ML IV SCH ×3 (09:53→16:04)
[2020-11-16] MEDS: FLOMAX PO SCH (09:53)
[2020-11-16] MEDS: PROTONIX INJ 40 MG VIAL IVP SCH (18:27)
--- NOTE | 2020-11-16 18:50 | RAD ---
HISTORYACUTE RENAL FAILURE .brABDOMEN DISTENTIONSTUDYACUTE ABDOMEN SERIESCOMPARISONChest radiograph from 1 day priorFINDINGSCardiac silhouette is normal in size. No focal infiltrate or significant effusion is identified. No pneumothorax.The bowel gas pattern is nonobstructive. No free air or pneumatosis is identified. No pathologic calcifications seen. Imaged osseous structures are grossly intact.IMPRESSIONNo acute cardiopulmonary abnormality.Nonobstructive bowel gas pattern.Electronically signed by: ANABELL DESOUZA (Nov 16, 2020 18:48:50)
[2020-11-16 19:07] LABS: CALCIUM 7.5 mg/dL (8.5-10.1); CARBON DIOXIDE 18.2 mmol/L (21-32); COR CA(FOR HYPOALB) 9.9 mg/dL (8.5-10.1); CREATININE 4.46 mg/dL (0.70-1.30); TOTAL PROTEIN 5.6 g/dL (6.4-8.2)
[2020-11-16 19:10] LABS: LACTIC ACID 0.4 mmol/L (0.4-2.0)
[2020-11-16] MEDS: ZOLOFT PO SCH (21:20)
[2020-11-17] MEDS: NS 1/2 1000 ML IV 1,000 ML IV SCH ×3 (07:10→16:32)
[2020-11-17] MEDS ORDERED: NS 1/2 1000 ML IV 1,000 ML IV ONE (08:32)
[2020-11-17] MEDS: ASPIRIN PO SCH (08:49)
[2020-11-17] MEDS: FLOMAX PO SCH (08:50)
[2020-11-17] MEDS: ROCEPHIN VIAL 1 GRAM 1 G in NS 100 ML IV + SPIKE MINIBAG* 100 ML IV SCH (08:50)
[2020-11-17] MEDS: NORVASC TAB 10 MG PO SCH (08:50)
[2020-11-17] MEDS: PEPCID TAB 20 MG PO SCH (08:50)
[2020-11-17] MEDS: PROTONIX INJ 40 MG VIAL IVP SCH (08:50)
[2020-11-17] MEDS: ZOLOFT PO SCH (08:51)
[2020-11-17] MEDS: ZESTRIL TAB 40 MG PO SCH (08:51)
[2020-11-17] MEDS: ZyrTEC TAB 10 MG PO SCH (08:51)
[2020-11-17] MEDS ORDERED: FLOMAX PO SCH (09:00)
[2020-11-17] MEDS: ZOFRAN TAB 4 MG PO PRN (12:22)
[2020-11-17] MEDS ORDERED: KAYEXALATE SUSP PO ONE (19:00)
[2020-11-17 19:15] LABS: BASOPHILS # (AUTO) 0.1 X10^3/uL (0.0-0.1); EOSINOPHILS # (AUTO) 0.3 x10^3/uL (0.0-0.2); EOSINOPHILS % (AUTO) 2.4 % (0.9-2.9); HEMATOCRIT 38.2 % (42.0-54.0); HEMOGLOBIN 12.9 g/dL (13.5-18.0); LYMPHOCYTES % (AUTO) 17.2 % (21.0-51.0); MEAN CORPUSCULAR HEMOGLOBIN 30.7 pg (27.0-34.0); MEAN CORPUSCULAR HGB CONC 33.7 g/dL (33.0-35.0); MEAN CORPUSCULAR VOLUME 91.2 fL (80.0-100.0); MEAN PLATELET VOLUME 7.7 fL (7.4-11.0); MONOCYTES # (AUTO) 0.9 x10^3/uL (0.3-0.8); MONOCYTES % (AUTO) 7.4 % (0.0-13.0); NEUTROPHILS # (AUTO) 8.5 x10^3/uL (2.2-4.8); PLATELET COUNT 435 X10^3/uL (150.0-450.0); RED BLOOD COUNT 4.19 X10^6/uL (4.7-6.0); RED CELL DISTRIBUTION WIDTH 13.3 % (11.6-16.5); WHITE BLOOD COUNT 11.8 X10^3/uL (3.6-10.0)
[2020-11-17 19:21] LABS: ALANINE AMINOTRANSFERASE 45 Units/L (12-78); ALBUMIN 1.1 g/dL (3.4-5.0); ALKALINE PHOSPHATASE 63 Units/L (46-116); ASPARTATE AMINO TRANSFERASE 39 Units/L (15-37); BLOOD UREA NITROGEN 71 mg/dL (7-18); CALCIUM 7.4 mg/dL (8.5-10.1); CARBON DIOXIDE 18.4 mmol/L (21-32); CHLORIDE 108 mmol/L (98-107); COR CA(FOR HYPOALB) 9.7 mg/dL (8.5-10.1); COR NA(FOR HYPERGLY) 138 mmol/L (136-145); CREATININE 4.59 mg/dL (0.70-1.30); SODIUM 137 mmol/L (136-145); TOTAL PROTEIN 5.5 g/dL (6.4-8.2); eGFR NON BLACK RACES 14 (>60)
[2020-11-17 19:35] LABS: ERYTHROCYTE SEDIMENTATION RATE 93 MM/HOUR (0-15)
[2020-11-17] MEDS: TYLENOL 500 MG TAB EXTRA STRENGTH PO PRN (20:30)
[2020-11-17] MEDS: LOPRESSOR TAB 25 MG PO SCH (20:53)
[2020-11-17 21:35] LABS: CREATININE,URINE 163.63 mg/dL (40-278)
[2020-11-17 21:56] LABS: CREATININE 24 HOUR,URINE 1.27 g/24 hr (0.87-2.41); TOTAL PROTEIN,URINE 1466.4 mg/dl (0-11.9)
[2020-11-18] MEDS: NS 1/2 1000 ML IV 1,000 ML IV SCH ×3 (05:38→17:10)
[2020-11-18] MEDS: ZOFRAN TAB 4 MG PO PRN (07:44)
[2020-11-18] MEDS ORDERED: LASIX IVP SCH (09:00)
[2020-11-18] MEDS: FLOMAX PO SCH (09:21)
[2020-11-18] MEDS: ASPIRIN PO SCH (09:21)
[2020-11-18] MEDS: LOPRESSOR TAB 25 MG PO SCH ×2 (09:21→21:37)
[2020-11-18] MEDS: NORVASC TAB 10 MG PO SCH (09:21)
[2020-11-18] MEDS: ZyrTEC TAB 10 MG PO SCH (09:22)
[2020-11-18] MEDS: PEPCID TAB 20 MG PO SCH (09:22)
[2020-11-18] MEDS: ZOLOFT PO SCH (09:22)
[2020-11-18] MEDS: PROTONIX INJ 40 MG VIAL IVP SCH (09:22)
[2020-11-18] MEDS: ROCEPHIN VIAL 1 GRAM 1 G in NS 100 ML IV + SPIKE MINIBAG* 100 ML IV SCH (09:22)
[2020-11-18] MEDS ORDERED: CATAPRES TAB 0.1 MG PO PRN (10:26)
[2020-11-18] MEDS ORDERED: LASIX ONE (10:41)
[2020-11-18] MEDS: ALBUMIN HUMAN 25%- 100 ML 100 ML IV SCH ×3 (10:47→21:37)
[2020-11-18] MEDS: TYLENOL 500 MG TAB EXTRA STRENGTH PO PRN (10:49)
[2020-11-18] MEDS: LASIX IVP SCH ×3 (11:55→22:48)
[2020-11-18 20:16] LABS: BASOPHILS # (AUTO) 0.2 X10^3/uL (0.0-0.1); BASOPHILS % (AUTO) 1.3 % (0.2-1.0); EOSINOPHILS # (AUTO) 0.4 x10^3/uL (0.0-0.2); EOSINOPHILS % (AUTO) 3.1 % (0.9-2.9); HEMATOCRIT 34.9 % (42.0-54.0); HEMOGLOBIN 11.9 g/dL (13.5-18.0); LYMPHOCYTES # (AUTO) 2.4 X10^3/uL (1.3-2.9); LYMPHOCYTES % (AUTO) 19.5 % (21.0-51.0); MEAN CORPUSCULAR HEMOGLOBIN 31.1 pg (27.0-34.0); MEAN CORPUSCULAR VOLUME 91.5 fL (80.0-100.0); MEAN PLATELET VOLUME 7.4 fL (7.4-11.0); MONOCYTES # (AUTO) 0.9 x10^3/uL (0.3-0.8); MONOCYTES % (AUTO) 7.3 % (0.0-13.0); NEUTROPHILS # (AUTO) 8.4 x10^3/uL (2.2-4.8); NEUTROPHILS % (AUTO) 68.8 % (42.0-75.0); PLATELET COUNT 401 X10^3/uL (150.0-450.0); RED BLOOD COUNT 3.82 X10^6/uL (4.7-6.0); RED CELL DISTRIBUTION WIDTH 12.9 % (11.6-16.5); WHITE BLOOD COUNT 12.2 X10^3/uL (3.6-10.0)
[2020-11-18 20:23] LABS: ALANINE AMINOTRANSFERASE 36 Units/L (12-78); ALBUMIN 1.5 g/dL (3.4-5.0); ALKALINE PHOSPHATASE 55 Units/L (46-116); ASPARTATE AMINO TRANSFERASE 27 Units/L (15-37); BLOOD UREA NITROGEN 72 mg/dL (7-18); CALCIUM 7.6 mg/dL (8.5-10.1); CARBON DIOXIDE 19.3 mmol/L (21-32); CHLORIDE 111 mmol/L (98-107); COR CA(FOR HYPOALB) 9.6 mg/dL (8.5-10.1); CREATININE 5.21 mg/dL (0.70-1.30); SODIUM 140 mmol/L (136-145); TOTAL PROTEIN 5.2 g/dL (6.4-8.2); eGFR NON BLACK RACES 12 (>60)
[2020-11-19] MEDS: NS 1/2 1000 ML IV 1,000 ML IV SCH ×2 (03:42→09:12)
[2020-11-19] MEDS: ALBUMIN HUMAN 25%- 100 ML 100 ML IV SCH (05:05)
[2020-11-19] MEDS: TYLENOL 500 MG TAB EXTRA STRENGTH PO PRN (05:13)
[2020-11-19 06:05] LABS: BASOPHILS # (AUTO) 0.1 X10^3/uL (0.0-0.1); EOSINOPHILS # (AUTO) 0.3 x10^3/uL (0.0-0.2); EOSINOPHILS % (AUTO) 3.1 % (0.9-2.9); HEMATOCRIT 33.5 % (42.0-54.0); HEMOGLOBIN 11.2 g/dL (13.5-18.0); LYMPHOCYTES # (AUTO) 2.2 X10^3/uL (1.3-2.9); LYMPHOCYTES % (AUTO) 19.6 % (21.0-51.0); MEAN CORPUSCULAR HEMOGLOBIN 30.6 pg (27.0-34.0); MEAN CORPUSCULAR HGB CONC 33.6 g/dL (33.0-35.0); MEAN CORPUSCULAR VOLUME 91.3 fL (80.0-100.0); MEAN PLATELET VOLUME 7.4 fL (7.4-11.0); MONOCYTES # (AUTO) 0.9 x10^3/uL (0.3-0.8); MONOCYTES % (AUTO) 7.7 % (0.0-13.0); NEUTROPHILS # (AUTO) 7.8 x10^3/uL (2.2-4.8); NEUTROPHILS % (AUTO) 68.6 % (42.0-75.0); PLATELET COUNT 376 X10^3/uL (150.0-450.0); RED BLOOD COUNT 3.67 X10^6/uL (4.7-6.0); WHITE BLOOD COUNT 11.4 X10^3/uL (3.6-10.0)
[2020-11-19 06:19] LABS: ALANINE AMINOTRANSFERASE 36 Units/L (12-78); ALBUMIN 1.9 g/dL (3.4-5.0); ALKALINE PHOSPHATASE 44 Units/L (46-116); ASPARTATE AMINO TRANSFERASE 30 Units/L (15-37); BLOOD UREA NITROGEN 75 mg/dL (7-18); CALCIUM 7.6 mg/dL (8.5-10.1); CARBON DIOXIDE 18.3 mmol/L (21-32); CHLORIDE 110 mmol/L (98-107); COR CA(FOR HYPOALB) 9.3 mg/dL (8.5-10.1); CREATININE 5.02 mg/dL (0.70-1.30); SODIUM 140 mmol/L (136-145); TOTAL PROTEIN 5.3 g/dL (6.4-8.2); eGFR NON BLACK RACES 13 (>60)
[2020-11-19] MEDS: LASIX IVP SCH (06:35)
[2020-11-19] MEDS ORDERED: KAYEXALATE SUSP PO NR (09:00)
[2020-11-19] MEDS: LOPRESSOR TAB 25 MG PO SCH (09:11)
[2020-11-19] MEDS: ASPIRIN PO SCH (09:11)
[2020-11-19] MEDS: FLOMAX PO SCH (09:11)
[2020-11-19] MEDS: ZOLOFT PO SCH (09:12)
[2020-11-19] MEDS: ROCEPHIN VIAL 1 GRAM 1 G in NS 100 ML IV + SPIKE MINIBAG* 100 ML IV SCH (09:12)
[2020-11-19] MEDS: PROTONIX INJ 40 MG VIAL IVP SCH (09:12)
[2020-11-19] MEDS: ZyrTEC TAB 10 MG PO SCH (09:12)
[2020-11-19] MEDS: NORVASC TAB 10 MG PO SCH (09:12)
[2020-11-19] MEDS: PEPCID TAB 20 MG PO SCH (09:12)
[2020-11-19] MEDS ORDERED: KAYEXALATE SUSP ONE (11:28)
[2020-11-19 11:32] VITALS: BP 154/75
[2020-11-22 14:33] LABS: ANTI-NUCLEAR ANTIBODY TEST None Detected (None Detected)
[2020-11-22 19:00] LABS: ALBUMIN (SPEP) 1.76 g/dL (3.75-5.01); ALPHA-1 (SPEP) 0.23 g/dL (0.19-0.46); ALPHA-2 (SPEP) 1.12 g/dL (0.48-1.05); GAMMA (SPEP) 0.65 g/dL (0.62-1.51)
== END 2020-11-19 11:45 | disposition home or self-care (01) | DRG 682 ==
LOC: ER 11:06 → MED/SURG 14:08 → OBS 20:11
PROVIDERS: ADMIT Internal Medicine; ATTEND Internal Medicine
DX: N17.8 Other acute kidney failure; K21.9 Gastro-esophageal reflux disease without esophagitis; R60.0 Localized edema; Z20.822 Contact with and (suspected) exposure to COVID-19; K85.80 Other acute pancreatitis without necrosis or infection; Z87.898 Personal history of other specified conditions; M62.82 Rhabdomyolysis; R42 Dizziness and giddiness; I10 Essential (primary) hypertension; J06.9 Acute upper respiratory infection, unspecified; N04.9 Nephrotic syndrome with unspecified morphologic changes